=== PATIENT | female | born 1965 | race Two or more races ===

== ENCOUNTER 2019-10-28 09:54 | Inpatient (IN) | payer MEDICAID, OTHER ==
[~2019-10-28] VITALS: Ht 165.1 cm; Wt 103.3 kg
[2019-10-28] MEDS ORDERED: SODIUM CHLORIDE 0.9% 1,000 ML IV ONE (11:46)
[2019-10-28] MEDS ORDERED: HYDROmorphone HCL 2 MG/ML VL IV ONE (12:00)
[2019-10-28 12:01] LABS: Basophils # (auto) 0.1 10 ^3/uL (0-0.2); Basophils % (auto) 1.2 % (0.0-2.0); Eosinophils # (auto) 0.1 10 ^3/uL (0-0.8); Eosinophils % (auto) 1.2 % (0.0-7.0); Hematocrit 38.9 % (36.0-46.0); Hemoglobin 13.1 g/dL (12.2-16.2); Lymphocytes % (auto) 28.9 % (10.0-50.0); Mean Corpuscular Hemoglobin 27.5 pg (28.0-32.0); Mean Corpuscular Hgb Conc. 33.6 g/dL (32.0-36.0); Mean Corpuscular Volume 81.9 fL (80.0-100.0); Monocytes # (auto) 0.4 10 ^3/uL (0-1.3); Monocytes % (auto) 6.1 % (0.0-12.0); Neutrophils # (auto) 4.4 10 ^3/uL (1.6-8.6); Neutrophils % (auto) 62.6 % (37.0-80.0); Platelet Count (auto) 316 10^3/uL (140-450); Red Blood Cells 4.76 10^6/uL (4.0-5.20); Red Cell Distribution Width 14.7 % (11.8-14.3); White Blood Cell 7.1 10^3/uL (4.4-10.8)
[2019-10-28] MEDS: PROMETHAZINE HCL 25 MG/ML 1ML IV PRN ×2 (12:05→16:40)
[2019-10-28 12:06] LABS: Urine Bacteria FEW /hpf (None Seen); Urine Blood Negative /uL (Negative); Urine Mucus FEW (None Seen); Urine Specific Gravity 1.021 (1.001-1.035); Urine WBC 1 /hpf (0 - 5)
[2019-10-28 12:22] LABS: Albumin 3.4 g/dL (3.4-5.0); Anion Gap 8 (5-15); Blood Urea Nitrogen 15 mg/dL (7-18); Calcium 9.6 mg/dL (8.5-10.1); Carbon Dioxide 25 mmol/L (21-32); Chloride 103 mmol/L (98-107); Glucose 97 mg/dL (74-106); Lipase 89 U/L (73-393); Magnesium 2.2 mg/dL (1.6-2.6); Sodium 136 mmol/L (136-145)
[2019-10-28 12:28] LABS: Alanine Aminotransferase 29 U/L (13-56); Alkaline Phosphatase 146 U/L (45-117); Aspartate Aminotransferase 22 U/L (15-37); BUN/Creatinine Ratio 16.5; Bilirubin, Total 0.3 mg/dL (0.2-1.0); GFR African American 83 mL/min; GFR Non-African American 68 mL/min; Total Protein 7.4 g/dL (6.4-8.2)
[2019-10-28] MEDS ORDERED: IOHEXOL 300 MG/ML 100ML BOTTLE IJ ONE (12:42)
[2019-10-28] MEDS ORDERED: metroNIDAZOLE 500MG/100ML 100 ML IV ONE (15:30)
[2019-10-28] MEDS ORDERED: cefTRIAXone 1GM/50ML D5W 50 ML IV ONE ×2 (15:30→15:45)
[2019-10-28] MEDS ORDERED: traMADol HCL 50 MG TAB PO PRN (15:45)
[2019-10-28] MEDS ORDERED: MORPHINE SULF INJ 2 MG/ML SYRINGE 1ML IV PRN (15:45)
[2019-10-28] MEDS ORDERED: ACETAMINOPHEN 500 MG TAB PO PRN (15:45)
[2019-10-28] MEDS ORDERED: PROMETHAZINE HCL 25 MG/ML 1ML IV PRN (15:45)
[2019-10-28] MEDS ORDERED: NITROGLYCERIN 0.4 MG SL TAB SL PRN (15:45)
[2019-10-28] MEDS ORDERED: TEMAZEPAM 15 MG CAP PO PRN (15:45)
[2019-10-28] MEDS: FAMOTIDINE (10MG/ML) 2ML VL IV SCH (16:11)
[2019-10-28] MEDS: SODIUM CHLORIDE 0.9% 1,000 ML IV SCH (16:11)
[2019-10-28] MEDS: metroNIDAZOLE 500MG/100ML 100 ML IV SCH (18:05)
--- NOTE | 2019-10-28 20:15 | NUR ---
opening note pt arrived to room 297B via hospital bed. This pt is A&Ox4. respirations are even and nonlabored on room air.
[2019-10-28 20:30] VITALS: BP 137/76
[2019-10-28 22:00] VITALS: BP 137/76
--- NOTE | 2019-10-29 00:53 | NUR ---
22g placed at right forearm
[2019-10-29] MEDS: metroNIDAZOLE 500MG/100ML 100 ML IV SCH ×3 (01:11→18:36)
[2019-10-29] MEDS: FAMOTIDINE (10MG/ML) 2ML VL IV SCH ×2 (03:34→16:13)
[2019-10-29 05:00] VITALS: BP 108/81
[2019-10-29] MEDS: SODIUM CHLORIDE 0.9% 1,000 ML IV SCH ×3 (06:29→23:00)
--- NOTE | 2019-10-29 07:03 | NUR ---
closing note pt resting in semi fowlers position with eyes closed. no s/s of pain or discomfort at this time. respirations are even and nonlabored on room air. bed in low locked position, call light within reach.
[2019-10-29 09:00] VITALS: BP_SYST 118; BP_SYST 123; BP_DIAS 68; BP_DIAS 71
[2019-10-29] MEDS: cefTRIAXone 1GM/50ML D5W 50 ML IV SCH (11:37)
[2019-10-29 12:54] VITALS: BP 127/84
--- NOTE | 2019-10-29 14:13 | NUR ---
Nutrition Assessment Notes Please refer to link for full assessment notes. Est energy needs: 6954-2299 kcals (14-18 kcal/kgBW) Est protein needs: 54-68 gms/day (0.8-1.0 gm/kgAdjBW) Will continue to monitor and reassess prn. Addendum: 10/29/19 at [address] Amended: Links added.
[2019-10-29 17:00] VITALS: BP 126/79
[2019-10-29 22:09] VITALS: BP 114/69
[2019-10-30] MEDS: metroNIDAZOLE 500MG/100ML 100 ML IV SCH ×3 (00:59→17:00)
[2019-10-30] MEDS: FAMOTIDINE (10MG/ML) 2ML VL IV SCH ×2 (03:34→15:45)
[2019-10-30 05:00] VITALS: BP 120/69
[2019-10-30 05:36] LABS: Basophils # (auto) 0 10 ^3/uL (0-0.2); Eosinophils # (auto) 0.1 10 ^3/uL (0-0.8); Eosinophils % (auto) 2.4 % (0.0-7.0); Hematocrit 32.8 % (36.0-46.0); Hemoglobin 10.8 g/dL (12.2-16.2); Lymphocytes # (auto) 1.4 10 ^3/uL (0.4-5.4); Lymphocytes % (auto) 38.1 % (10.0-50.0); Mean Corpuscular Hemoglobin 27.2 pg (28.0-32.0); Mean Corpuscular Hgb Conc. 32.8 g/dL (32.0-36.0); Monocytes # (auto) 0.2 10 ^3/uL (0-1.3); Monocytes % (auto) 6.6 % (0.0-12.0); Neutrophils # (auto) 1.9 10 ^3/uL (1.6-8.6); Neutrophils % (auto) 51.9 % (37.0-80.0); Nucleated Red Blood Cells % 0.1 %; Platelet Count (auto) 226 10^3/uL (140-450); Red Blood Cells 3.96 10^6/uL (4.0-5.20); Red Cell Distribution Width 14.9 % (11.8-14.3); White Blood Cell 3.8 10^3/uL (4.4-10.8)
[2019-10-30 05:40] LABS: BUN/Creatinine Ratio 13.4; Calcium 7.9 mg/dL (8.5-10.1); Potassium 3.5 mmol/L (3.5-5.1)
[2019-10-30 08:00] VITALS: BP 130/79
--- NOTE | 2019-10-30 08:30 | NUR ---
No insurance Pt is currently listed as having no current insurance. Pt states they are currently unemployed. Discussed with [employer] [employer], to assist with process for [facility] insurance coverage. Advised pt that additional information regard d/c planning would be provided prior to elgibility options for medical coverage based on their their current situation. Pt referred to Josep Chavez. they are currently unemployed. Josep Chavez , Jane- their discharge. Will follow up with Josep regarding the insurance status.
[2019-10-30 09:00] VITALS: BP 130/79
[2019-10-30] MEDS: SODIUM CHLORIDE 0.9% 1,000 ML IV SCH ×2 (10:30→17:33)
[2019-10-30] MEDS: cefTRIAXone 1GM/50ML D5W 50 ML IV SCH (10:31)
[2019-10-30 13:00] VITALS: BP 117/81
[2019-10-30 13:55] VITALS: BP 117/81
--- NOTE | 2019-10-30 18:00 | NUR ---
DISCHARGE HOME. PT HAS NO PRIMARY MD AND NO INSURANCE OR EMERGENCY MEDICAL, URGENT CARE VOUCHER GIVEN. INSTRUCTED TO FOLLOW UP WITH DR. Rosalba MENDOZA WITHIN 1 WEEK AFTER DISCHARGE. IV REMOVED WITH CATHETER INTACT, PT REFUSED W/C WANTS TO WALK OUT WITH ALL BELONGING, NO ACUTE DISTRESS NOTED AT DEPARTURE.
== END 2019-10-30 17:00 | disposition home or self-care (01) | DRG 249 ==
LOC: ER 09:57 → OVERFLOW 09:58 → WEST WING 20:23
PROVIDERS: ADMIT Internal Medicine; ATTEND Internal Medicine
DX: K52.9 Noninfective gastroenteritis and colitis, unspecified (principal); K76.0 Fatty (change of) liver, not elsewhere classified; E66.01 Morbid (severe) obesity due to excess calories; N39.0 Urinary tract infection, site not specified; K44.9 Diaphragmatic hernia without obstruction or gangrene; K21.0 Gastro-esophageal reflux disease with esophagitis; I10 Essential (primary) hypertension; E78.5 Hyperlipidemia, unspecified; K59.00 Constipation, unspecified; Z68.37 Body mass index [BMI] 37.0-37.9, adult; Z86.718 Personal history of other venous thrombosis and embolism; Z88.2 Allergy status to sulfonamides; Z88.8 Allergy status to other drugs, medicaments and biological substances; Z90.49 Acquired absence of other specified parts of digestive tract
CPT/HCPCS: 36415; 71046; 74177; 80048; 80053; 81001; 82150; 83690; 83735; 84443; 84484; 85025; 93005; 96361; 96365; 96375; G0378; J0696; J3490